=== PATIENT | female | born 1980 | race Caucasian/White ===

== ENCOUNTER 2017-08-08 21:35 | Observation (INO) ==
--- OUTSIDE RECORDS SUMMARY | 2017-08-08 21:50 | External Medical Summary ---
:1980 Author Organization [employer] Care Team Providers Name Role Phone Nitza Reyes Provider Role Unavailable Allergies No Known Allergies Problems Problem Type Condition Code Onset Dates Condition Status Assessment History of gastric bypass Z98.890 Active Problem Depressed mood F32.9 Active Problem Hx of papillary thyroid carcinoma Z85.850 Active Problem Heart failure, unspecified I50.9 Active Assessment Heart failure, unspecified I50.9 Active Assessment Angina at rest I20.8 Active Problem Postsurgical hypothyroidism E89.0 Active Problem Angina at rest I20.8 Active Medications Medication Code Code Instructions Start End Date Status Dosage System Date Potassium NDC 10408-51 99 MG Orally 1 tablet 94-01 Once a day Furosemide NDC 34792-94 20 MG Orally 1 tablet 97-25 Once a day Digoxin NDC 76157-22 0.125 MG Orally 1 tablet 11-01 Once a day Calcium NDC 94279-35 150 MG Orally not 50-40 defined Singulair NDC 37306-88 10 MG Orally 1 tablet 17-01 Once a day in the evening Fluoxetine HCl NDC 36243-40 40 MG Orally 1 capsule 46-56 Once [place] the [place] [address]-78 50 MG Orally 3 tabs Succinate ER 82-01 Once a day Losartan NDC 44720-21 50 MG Orally 1 tablet Potassium 24-22 [place] [address]-91 200 MCG Orally 1 tablet Sodium 58-00 Once a day on an empty stomach in the morning Procedures Procedure Coding System Code Date COMPREHENSIVE METABOLIC PANEL CPT-4 13111 Jun 03, 2016 LIPID PANEL CPT-4 18137 Jun 03, 2016 COMPLETE CBC W/AUTO DIFF WBC CPT-4 25252 Jun 03, 2016 MAGNESIUM CPT-4 07205 Jun 03, 2016 Results No Known Results Summary Purpose [employer]Works Submission
--- OUTSIDE RECORDS SUMMARY | 2017-08-08 21:50 | External Medical Summary ---
:1980 Author Organization [employer] Care Team Providers Name Role Phone Eric Nitza Provider Role Unavailable Allergies, Adverse Reactions, Alerts Substance Reaction Event Type Latex Exam Gloves rash Drug Allergy Adhesive 1"x6yd Info Not Available Drug Allergy Problems Problem Type Condition Code Onset Dates Condition Status Assessment History of gastric bypass Z98.890 Active Assessment Depressed mood F32.9 Active Assessment Abdominal mass of other site R19.09 Active Problem Depressed mood F32.9 Active Problem Hx of papillary thyroid carcinoma Z85.850 Active Problem Heart failure, unspecified I50.9 Active Assessment Hx of papillary thyroid carcinoma Z85.850 Active Assessment Heart failure, unspecified I50.9 Active Problem Postsurgical hypothyroidism E89.0 Active Problem Angina at rest I20.8 Active Assessment Hypokalemia E87.6 Active Assessment Postsurgical hypothyroidism E89.0 Active Assessment Angina at rest I20.8 Active Medications Medication Code Code Instructions Start End Date Status Dosage System Date Losartan NDC 30120-95 50 MG Orally 1 tablet Potassium 24-22 [place] [address]-57 0.125 MG Orally 1 tablet 11-01 [place] [address]-90 200 MCG Orally 1 tablet Sodium 58-00 Once a day on [place] the [place] [address]-99 50 MG Orally 3 tabs Succinate ER 82-01 Once a day Potassium NDC 33407-28 99 MG Orally 1 tablet 94-01 [place] [address]-72 40 MG Orally 1 capsule 46-56 Once a day in the morning Furosemide NDC 53528-82 20 MG Orally 1 tablet 97-25 [place] [address]-49 150 MG Orally not 50-[address] [place] [address]-64 10 MG Orally 1 tablet 17-01 Once a day in the evening Procedures Procedure Coding System Code Date OFFICE VISIT, HEDGE TRIMMER-LOW COMPLEXITY (30 MIN.) CPT-4 04801 Jun 03, 2016 Vital Signs Date/Time: Jun 03, 2016 Temperature 99.4 F Height 61.75 in Weight 154.8 lbs Blood Pressure Diastolic 72 mm Hg Blood Pressure Systolic 110 mm Hg Cardiac Monitoring Heart Rate 80 /min BMI 28.54 Index Oximetry 96 % Results Name Result Date Reference Range Unit Abnormality Flag CT Scan : Abd & Pelvis with IV and oral contrast Summary Purpose eClinicalWorks Submission
[2017-08-08] MEDS ORDERED: SALINE FLUSH 10ml SYRINGE IVF PRN (21:56)
--- NOTE | 2017-08-08 22:09 | Emergency Department Report ---
General Adult HPI - General Stated complaint: numbness in arms/legs Time Seen by Provider: 08/08/17 21:43 Source: patient Mode of arrival: ambulatory Limitations: no limitations - History of Present Illness HPI narrative: Patient presents with strange and somewhat bizarre behavior, mild decreased level of consciousness, and complaints of tingling numbness all over her body. Patient states that last night she had severe chest pain that lasted several hours, but she did not come to the doctor's office. Tonight apparently the symptoms of chest pain had completely gone away, now she presents with vague and variable symptoms of tingling and numbness which are essentially gone at the time of exam. Patient admits routinely using methamphetamines, but states her last use was greater than 5 days ago. Her "friend" who is in the room with her states that he has been with her for the past week, and shows obvious signs of current methamphetamine intoxication. Patient seems to be having some paranoia stating that she thinks that she might of been poisoned, after she talked with police earlier in the day. Patient is not able or willing to tell us why she had the occasion to talk to the police today. - Related Data Home Medications Medication Instructions Recorded Confirmed Cozaar (losartan) 50 mg tablet 25 mg PO DAILY tab 05/11/17 08/08/17 K-Tab (potassium chloride ER) 20 20 meq PO .PRN tab 05/11/17 08/08/17 mEq tablet Lasix (Furosemide) 20 mg tablet 20 mg PO DAILY tab 05/11/17 08/08/17 Prozac (fluoxetine) 20 mg capsule 20 mg PO DAILY cap 05/11/17 08/08/17 Toprol XL metoprolol succinate ER 150 mg PO DAILY tab 05/11/17 08/08/17 200 mg tablet,extended release 24 hr calcium carbonate 500 mg calcium 500 mg PO DAILY tab 05/11/17 08/08/17 (1,250 mg) tablet digoxin 125 mcg tablet 125 mcg PO DAILY tab 05/11/17 08/08/17 levothyroxine 200 mcg tablet 1 tab PO DAILY tab 05/11/17 08/08/17 Allergies Allergy/AdvReac Type Severity Reaction Status Date / Time No Known Allergies Allergy Verified 08/08/17 23:53 Review of Systems All systems: reviewed and negative except as stated PFSH Patient Stated Medical History Hypertension Yes Other Cardiology Yes: cardiomyopathy Depression Yes Substance Use Disorder Yes Now No Clinic Medical History (Last Updated 06/01/17 @ 12:20 by Justin Modi MD) Postsurgical hypothyroidism (Chronic Medical) Papillary thyroid carcinoma (Resolved Medical ~2011) Papillary thyroid carcinoma (Resolved Medical ~2007) Papillary thyroid carcinoma (Inactive Medical ~2000) Drug abuse - methamphetamines Hypokalemia/Hypocalcemia, chronic, noncompliant Hypertension Cardiomyopathy - Social History Smoking status: Current every day smoker Substance use type: methamphetamine Alcohol intake frequency: does not drink Physical Exam - Limitations Limitations: no limitations - General General appearance: alert, other (patient has a dry mouth, lethargic presentation, and looks significantly older than her stated age) - Normal Exams: Head:: Normocephalic without trauma Eyes:: Pupils are PERRLA w/ EOMI, No scleral icterus, irritation, or foreign bodies noted Neck:: Full range of motion, without adenopathy, JVD, bruits or thyromegaly Chest/Respirations:: Clear all soto, with good airflow, and symmetry bilaterally Cardiovascular:: Regular rate and rhythm, without murmur or gallop, Pulses 2+ all extremities, capillary refill, <2 seconds all extremities Abdomen:: Bowel sounds positive, soft, non-tender, non-distended, no hepatosplenomegaly, masses or bruits noted Lymphatic:: No lymphadenopathy, or lymphedema noted Musculoskeletal:: No tenderness, or deformity noted, good range of motion, all extremities Integumentary:: No rashes, hives, or bruising noted, hair and nails, without abnormality Neurological:: Patient is alert, and oriented, cranial nerves, motor/sensory/ cerebellar, exams w/o gross deficits, to observation Psychiatric:: Patient exhibits, appropriate attention, emotion and affect - ENT ENT exam: Present: mucous membranes dry Course Vital Signs Temperature 98.2 F 08/08/17 21:38 Pulse Rate 116 H 08/08/17 21:38 Respiratory Rate 16 08/08/17 21:38 Blood Pressure 132/68 08/08/17 21:38 Pulse Oximetry 99 08/08/17 21:38 Temperature 98.8 F 08/09/17 00:54 Pulse Rate 99 08/09/17 00:54 Respiratory Rate 16 08/09/17 00:54 Blood Pressure 127/61 08/09/17 00:54 Pulse Oximetry 99 08/09/17 00:54 Medical Decision Making - MDM Narrative Medical decision making narrative: On initial examination the patient stated that she was too weak to raise her arms. With assistance she was not only able to raise her arms but keep them raised. On further neurologic testing patient appears to have no significant loss of sensation motor strength or coordination when she gives effort. Patient does appear somewhat lethargic, but her level of consciousness is variable, as she becomes quickly alert when any of her possessions are removed. After the patient had been in the ER for some time after IV fluids are started, patient still is "unable" to give a urine sample. Patient did develop severe muscle cramps and carpal pedal spasms. Patient is given potassium supplement with IV fluids and calcium supplement as ordered. Patient was more forthcoming with the nurse stating that she "usually" takes her medicine routinely, but has not been taking her potassium or her calcium "much." CBC - n CMP - potassium low at 2.6, otherwise normal UDS - Patient given 1 L normal saline with 20 of KCl IV, and 40 KCl orally - Discussed with Dr. Spencer - will admit for electrolyte abnormalities. - Lab Data Result diagrams: 08/08/17 22:37 08/08/17 22:38 Lab Results 08/08/17 08/08/17 08/08/17 Range/Units 22:37 22:37 22:38 WBC 15.7 H (4.5-11.0) T/MM3 RBC 4.44 (4.00-5.20) M/MM3 Hgb 13.1 (12-16) GM/DL Hct 38.8 (36-46) % MCV 87.4 (80-100) UM3 MCH 29.5 (26-34) UUG MCHC 33.8 (31-37) GM/DL RDW Std Deviation 42.6 (36.9-50.2) FL Plt Count 241 (130-400) T/MM3 MPV 10.2 (9.4-12.4) UM3 Immature Gran % (Auto) 0.2 (0.0-0.5) % Neut % (Auto) 83.3 H (33-66) % Lymph % (Auto) 9.2 L (23-45) % Whitley % (Auto) 6.8 (0-9.0) % Eos % (Auto) 0.3 (0-4) % Baso % (Auto) 0.2 (0-2) % Neut # (Auto) 13.0 H (1.8-7.7) T/MM3 Lymph # (Auto) 1.4 (1-4.8) T/MM3 Whitley # (Auto) 1.1 H (0-0.8) T/MM3 Eos # (Auto) 0.0 (0-0.5) T/MM3 Baso # (Auto) 0.0 (0-0.2) T/MM3 Abs Immat Gran (auto) 0.03 (0.00-0.03) T/MM3 Turbidity < 20 (0-20) Sodium 137 (134-144) MEQ/L Potassium 2.6 L* (3.6-5) MEQ/L Chloride 94 L (98-107) MEQ/L Carbon Dioxide 31 H (22-30) MEQ/L Anion Gap 12 (5-15) MEQ/L BUN 8.0 (7-17) MG/DL Creatinine 0.6 L (0.7-1.2) MG/DL GFR Calculation 112 BUN/Creatinine Ratio 13 (6-26) RATIO Glucose 102 (65-110) MG/DL Calculated Osmolality 262 (261-280) MOSM/KG Calcium 7.1 L (8.4-10.2) MG/DL Total Bilirubin 1.30 (0.20-1.30) MG/DL Conjugated Bilirubin 0.00 (0.00-0.30) MG/DL Unconjugated Bilirubin 1.00 (0.00-1.1) MG/DL Icterus Index < 2 (0-7) AST 18 (14-36) U/L ALT 24 (9-52) U/L Alkaline Phosphatase 82 (38-126) U/L Troponin I 0.019 (0-0.12) ng/ml Total Protein 7.6 (6.3-8.2) G/DL Albumin 4.2 (3.5-5.0) G/DL Globulin 3.4 (2.4-3.6) G/DL Albumin/Globulin Ratio 1.2 (1.1-2.2) RATIO Specimen Hemolysis < 15 < 15 (0-25) Disposition Clinical Impression: Hypocalcemia, Hypokalemia Disposition: To [facility] [place] Condition: Improved Prescriptions: No Action calcium carbonate 500 mg calcium (1,250 mg) tablet 500 mg PO DAILY tab Toprol XL metoprolol succinate ER 200 mg tablet,extended release 24 hr 150 mg PO DAILY tab Cozaar (losartan) 50 mg tablet 25 mg PO DAILY tab Lasix (Furosemide) 20 mg tablet 20 mg PO DAILY tab Prozac (fluoxetine) 20 mg capsule 20 mg PO DAILY cap digoxin 125 mcg tablet 125 mcg PO DAILY tab levothyroxine 200 mcg tablet 1 tab PO DAILY tab K-Tab (potassium chloride ER) 20 mEq tablet 20 meq PO .PRN tab - Seen By: physician
[2017-08-08] MEDS ORDERED: METOCLOPRAMIDE 10 MG PO ONE (22:30)
[2017-08-08] MEDS ORDERED: HYDROCODONE/APAP 5/325mg TAB #6 *ED PREPACK SENT HOME ONE (22:30)
[2017-08-08] MEDS ORDERED: NS 1,000 ML IV ONE (22:53)
[2017-08-08] MEDS ORDERED: NS with KCL 20 mEq 1,000 ML IV SCH (23:00)
[2017-08-09] MEDS ORDERED: ORPHENADRINE 60 MG/2 ML INJECTION IV ONE (00:45)
[2017-08-09] MEDS ORDERED: KETOROLAC 30 MG/ML INJECTION IVP ONE (00:45)
[2017-08-09] MEDS ORDERED: CALCIUM GLUCONATE 1,000mg/10ml INJECTION IVP ONE (00:50)
[2017-08-09] MEDS ORDERED: HYDROCODONE/APAP 5mg/325mg TABLET PO PRN (01:50)
[2017-08-09] MEDS ORDERED: ACETAMINOPHEN 325 MG TABLET PO PRN (01:50)
[2017-08-09 02:12] VITALS: BMI 22.6
--- NOTE | 2017-08-09 02:31 | History & Physical Report ---
History of Present Illness Date: 08/09/17 Chief complaint: muscle spasms, peripheral numbness/tingling HPI: Maliha is a 36 y/o female w/ h/o Hypothyroidism, hypokalemia, Cardiomyopathy(on digoxin) and h/o meth use who presents to ED at [facility] [place] w/ chief concern re; muscle spasms in her extremities, peripheral numbness and tingling and shaking and cramping pain at times. Patient states that her fists were clenched today and that she was have similar issues w/ her feet/toes. She states that the symptoms have been occurring intermittently over the past few months, however seemed to be increasing in frequency, severity and duration in recent days. Denies CP today and denies SOA and N/v/D. Patient states she has not been taking her prescription medications including L-thyroxine, calcium and potassium supplements as prescribed by her Manager Of Revenue. She states she last used Meth about 5 days ago - injected into her vein though thinks her " vein blew". She denies any other drug use. In ED, patient's K+ = 2.6 and her Calcium = 7.1. Patient started on IVFs w/ KCL and given oral KDUR x 40mEQ x one and 1 g Calcium gluconate ordered. Patient's EKG showed some early polarization in a few leads, however no specific ST elevations or depressions per report. Her troponin was 0.019. Patient to be admitted to the Hospitalist service for further evaluation and management. Review of Systems All systems PM: 10-point ROS was reviewed, no additional remarkable complaints except Past Medical History Patient Stated Medical History Hypertension Yes Other Cardiology Yes: cardiomyopathy Depression Yes Substance Use Disorder Yes Now No Clinic Medical History (Last Updated 06/01/17 @ 12:20 by Justin Modi MD) Postsurgical hypothyroidism (Chronic Medical) Papillary thyroid carcinoma (Resolved Medical ~2011) Papillary thyroid carcinoma (Resolved Medical ~2007) Papillary thyroid carcinoma (Inactive Medical ~2000) Family History: Mother w/ HTN Family History Updates: Mother w/ HTN - Social History Smoking status: Current every day smoker Substance use type: methamphetamine Medications Home Medications Medication Instructions Recorded Confirmed Type Cozaar (losartan) 50 mg tablet 25 mg PO DAILY tab 05/11/17 08/08/17 History K-Tab (potassium chloride ER) 20 20 meq PO .PRN tab 05/11/17 08/08/17 History mEq tablet Lasix (Furosemide) 20 mg tablet 20 mg PO DAILY tab 05/11/17 08/08/17 History Prozac (fluoxetine) 20 mg capsule 20 mg PO DAILY cap 05/11/17 08/08/17 History Toprol XL metoprolol succinate ER 150 mg PO DAILY tab 05/11/17 08/08/17 History 200 mg tablet,extended release 24 hr calcium carbonate 500 mg calcium 500 mg PO DAILY tab 05/11/17 08/08/17 History (1,250 mg) tablet digoxin 125 mcg tablet 125 mcg PO DAILY tab 05/11/17 08/08/17 History levothyroxine 200 mcg tablet 1 tab PO DAILY tab 05/11/17 08/08/17 History Allergies Allergy/AdvReac Type Severity Reaction Status Date / Time latex AdvReac Rash Verified 08/09/17 02:02 Exam Vital Signs: Temperature 99.4 F 08/09/17 02:19 Pulse Rate 96 08/09/17 02:19 Respiratory Rate 16 08/09/17 02:19 Blood Pressure 124/71 08/09/17 02:19 Pulse Oximetry 96 08/09/17 02:19 Telemetry Rhythm: Sinus Rhythm Height/Weight/BMI: Height 1.55 m Weight 54.3 kg Body Mass Index 22.6 - Constitutional Present: no acute distress, well nourished, well developed - Routine HEENT Exam Head: Present: normocephalic, atraumatic Eye: Present: EOMI, PERRL ENT: Present: mucous membranes dry - Routine Neck Exam Present: supple, full ROM. Absent: JVD, meningismus - Routine Respiratory Exam Present: CTA bilaterally. Absent: accessory muscle use, dyspnea, respiratory distress - Routine Cardiovascular Exam Present: S1, S2, murmur (soft 1/6 systolic murmur), tachycardia (mild) - Routine Abdominal Exam Present: soft, normoactive bowel sounds, non distended, non tender - Routine Extremities Exam Absent: cyanosis, clubbing, edema - Routine Skin Exam Present: dry, warm (nursing) - Routine Neurological Exam Present: alert, oriented X3 Patient was able to close and open fists, FROM of upper extermities; moved lower extremities spontaneously; no contractures; no spasms noted; no facial muscle twitching. - Routine Psychiatric Exam Present: cooperative Comments: alert and awake, however states she was very tired and wanted to go to sleep; Results - Labs CBC & Chem 7: 08/09/17 05:55 08/09/17 05:55 Assessment and Plan Assessment and Plan: Assessment: 1) Acute Symptomatic Hypocalcemia 2) Acute Hypokalemia 3) Hypothyroidism 4) Acute UTI w/ Leukocytosis - UA came back as + nitrates and 20-30 WBCs in the urine 5) Cardiomyopathy 6) HTN 7) Polysubstance abuse / Tobacco use 8) Depression Plan: IVFs NS + 20 mEq of KCL at 100 cc/hour KCL po 20 mEq po BID Tums po TID w/ meals Calcium gluconate 1 gram IV x one Recheck labs at 0600 today including TSH, CBC, Renal Panel, Mg level and Digoxin level Telemetry EKG in the AM (0700) Monitor BP Hold home meds for now - will likely need to restart later this AM SW consult Tox screen pending IV Cipro 400mg IV q 12 hours I have discussed the plan of care w/ the patient and the patient verbalized understanding. Resuscitation Status: Full Code - Physician Narrative Physician: Chu Lopez MD Narrative: Date: 08/09/17 Time: 1700 Have independently interviewed and examined pt. Chart reviewed. Reviewed above note and concur. CC: Muscle spasm, peripheral numbness/tingling HPI: 36 y/o presents to ED secondary to muscle spasm and peripheral numbness/ tingling. Reports intermittent symptoms over past several months, but has been increasing in frequency/severity/duration over the past several days. Reports to ED and [facility] that she has not been using her medications routinely. Report of meth use about 5 days ago. ED evaluation showed significant hypokalemia, hypomagnesemia, and hypocalcemia. Placed in OBS for correction of electrolytes. Discussed case with nursing: has been very somnolent all day - not eaten much, or able to take medications. Met with SW earlier today-not able to stay awake during interview. Even at my evaluation, patient still very somnolent. Could respond with short phrases, but readily would fall back asleep. PMx: HTN, Cardiomyopathy, Depression, Substance abuse, Tobacco dependency, Post Sx hypothyroidism (Hx papillary thyroid cancer). ALL: Latex. Meds: see mar Shx: Recent met use. Not able to obtain detailed history due to patient's somnolence. FHx: Mother had HTN (per chart) ROS: patient notes chills, slight cough. Really not able to obtain more ROS due to patient's somnolency EXAM GEN: WDWNWF somnolent. HEENT: NC/AT PERRLA EOMI MMM Neck: supple Lungs: clear bilaterally. No crackles or wheezes. No distress on RA CV: regular with murmur AB: soft nt/nd BS decreased EXT: trace LE edema bilaterally Skin: warm and dry Neuro: Limited exam secondary to somnolence Psych: somnolent. Will respond to verbal stimuli and answer questions with 1-2 word phases. Not agitated or restless. Apologetic for her somnolence. Assessment Hypokalemia Hypomagnesia Hypocalcemia Leukocytosis UTI Somnolence Cardiomyopathy HTN - BP low post admission Polysubstance use Tobacco dependency Hx depression Sx hypothyroidism Plan Placed in OBS to correct electrolyte disturbance. Repeat lab showing persistently low Mg and potassium - IV boluses given. Recheck BMP and Mg post bolus - replace as indicated. Supportive care for somnolence - possible muscle relaxers given in ED. Hold BP medications as BP has been low post leaving ED. Cipro initiated for UTI, check urine C/S. Check T3/T4 due to low TSH SW did met with patient to discuss concerns. Care to return to PCP at discharge. Hospital Course Summary Disclaimer: The visit summary below is not to be considered part of the above Progress Note.
[2017-08-09] MEDS: NS with KCL 20 mEq 1,000 ML IV SCH ×3 (02:34→21:37)
[2017-08-09] MEDS: CIPROFLOXACIN PB 400 MG/200 ML BAG IV SCH ×2 (05:44→17:45)
[2017-08-09] MEDS: CALCIUM CARBONATE Chewable 500mg TABLET PO SCH ×3 (09:20→20:38)
[2017-08-09] MEDS: MAGNESIUM OXIDE 400 MG TABLET PO SCH ×2 (09:20→20:38)
[2017-08-09] MEDS: MAGNESIUM SULFATE 1gm PREMIX 1 GM/100 ML BAG IV SCH ×2 (10:31→12:08)
[2017-08-09] MEDS: LIDOCAINE 1% 2ml INJ 10 MG, POTASSIUM CHLORIDE INJ 10 MEQ in NS 100 ML IV SCH ×4 (13:24→16:38)
[2017-08-10] MEDS: CIPROFLOXACIN PB 400 MG/200 ML BAG IV SCH (05:25)
[2017-08-10 07:51] VITALS: BP 105/41; RESP 16; TEMP 97.8; O2SAT 99
[2017-08-10 08:01] VITALS: PULSE 91
[2017-08-10] MEDS: MAGNESIUM OXIDE 400 MG TABLET PO SCH (09:23)
[2017-08-10] MEDS: CALCIUM CARBONATE Chewable 500mg TABLET PO SCH ×2 (09:23→15:32)
[2017-08-10] MEDS: NS with KCL 20 mEq 1,000 ML IV SCH (09:24)
--- NOTE | 2017-08-10 14:14 | Progress Note ---
- Date 08/10/17 Subjective: Maliha is seen in follow up for her hypocalcemia, hypokalemia and cardiomyopathy. She is seen while resting in bed with her significant other in bed with her, sleeping. She reports that she is feeling "ok", though she has no specific concerns or complaints. She states that her cramping and muscle spasms are a little better but feels like there is "fluid in her lungs and around her heart". She denies any chest pain, shortness of breath, abdominal pain, nausea, vomiting or diarrhea. Her recent labs were reviewed and results shared with her. UA revealed growth with E. Coli and she continues on cipro. Discussed possibility of discharging today and she stated, "that would be nice. " The importance of outpatient follow up with both Dr. Modi, endocrinology, and her credit controller Dr. Zavala were discussed. Objective Vital signs: Temperature 97.8 F 08/10/17 07:51 Pulse Rate 91 08/10/17 08:00 Respiratory Rate 16 08/10/17 07:51 Blood Pressure 105/41 08/10/17 07:51 Pulse Oximetry 99 08/10/17 07:51 Rhythm: Normal Sinus Rhythm Height/Weight/BMI: Height 5 ft 1 in Weight 119 lb 0.794 oz Body Mass Index 22.6 - Constitutional Present: no acute distress, well nourished, well developed, thin, cooperative Comments: resting in bed with significant other; at times, appears to drift off to sleep during conversation. - Routine HEENT Exam Head: Present: normocephalic, atraumatic Eye: Present: PERRL. Absent: conjunctival icterus ENT: Present: mucous membranes dry - Routine Respiratory Exam Present: CTA bilaterally. Absent: rales, stridor, wheezes, crackles - Routine Cardiovascular Exam Present: RRR, S1, S2 - Routine Abdominal Exam Present: soft, normoactive bowel sounds, non distended, non tender - Routine Extremities Exam Present: edema (trace), non tender, full ROM, pulses intact - Routine Back/Spine/Pelvis Exam Back/Spine: Present: full ROM. Absent: vertebral tenderness - Routine Musculoskeletal Exam Musculoskeletal: Present: no clubbing or cyanosis, moving extremities well - Routine Skin Exam Present: intact, dry, warm. Absent: jaundice Comments: afebrile. - Routine Neurological Exam Present: alert, moving all extremities, hearing grossly intact, normal speech - Routine Lymphatic Exam Lymphatic: Absent: lymphedema - Routine Psychiatric Exam Present: cooperative Comments: drifts off to sleep during exam. Results - Labs CBC & Chem 7: 08/10/17 07:48 08/10/17 07:48 Assessment and Plan Assessment and Plan: Assessment: 1) Acute Symptomatic Hypocalcemia - improving. 2) Acute Hypokalemia - resolved. 3) Hypothyroidism 4) Acute UTI w/ Leukocytosis - E.coli noted on culture. 5) Cardiomyopathy 6) HTN 7) Polysubstance abuse / Tobacco use 8) Depression Plan 08/10/17: Overall, Maliha appears to be clinically improving. Muscle cramping improved. Discussed patient case with Dr. Modi, opthalmic tech, whom she has seen in the past. She missed appointment on 06/02/17. After review of her labs, he recommended Calcitriol 0.25mg daily in addition to calcium carbonate 1500mg daily. Follow up appointment with Dr. Modi scheduled for 08/12/17 at 1:45 in his office. UA revealed E. coli. Will change cipro to oral dosage. Oral intake is good. Will discontinue IVF. Weight stable. Hypokalemia resolved. Will continue KCl 20 mEq po BID. TSH <0.02 with free T3 and T4 pending. Dr. Modi recommended having patient continue her home synthyroid dose and skipping a dose every week until he can follow up with her and taper the dosage. Toxicology screen positive for methamphetamines. Recommend follow up with Dr. Zavala (cardiology) as outpatient as well. DVT Prophylaxis: SCD's Resuscitation Status: Full Code - Time spent with patient Time with patient PN: 35 minutes - Physician Narrative Physician: Chu Lopez MD Narrative: Date: 08/10/17 Time: 1540 Have independently interviewed and examined pt. Chart reviewed. Case discussed with CM and my PA. Care plan developed with my supervision; agree with above. Tired this afternoon-has been sleeping a lot this hospitalization. Notes some increased swelling to hands. Breathing well-not SOA or congested. Lungs: clear bilaterally, no distress CV: regular MSE: awake alert appropriate Plan: Will discharge to home. Calcium and potassium to help maintain electrolytes. May restart prior cardiac medications. Apt set up for Dr Modi evaluation of her thyroid function and low calcium - Free T3 and T4 pending. See orders for details. Hospital Course Summary Disclaimer: The visit summary below is not to be considered part of the above Progress Note. Hospital Course: Assessment: 1) Acute Symptomatic Hypocalcemia 2) Acute Hypokalemia 3) Hypothyroidism 4) Acute UTI w/ Leukocytosis - UA came back as + nitrates and 20-30 WBCs in the urine 5) Cardiomyopathy 6) HTN 7) Polysubstance abuse / Tobacco use 8) Depression Plan 08/09/17: IVFs NS + 20 mEq of KCL at 100 cc/hour KCL po 20 mEq po BID Tums po TID w/ meals Calcium gluconate 1 gram IV x one Recheck labs at 0600 today including TSH, CBC, Renal Panel, Mg level and Digoxin level Telemetry EKG in the AM (0700) Monitor BP Hold home meds for now - will likely need to restart later this AM SW consult Tox screen pending IV Cipro 400mg IV q 12 hours Plan 08/10/17: Overall, Maliha appears to be clinically improving. Muscle cramping improved. Discussed patient case with Dr. Modi, opthalmic tech, whom she has seen in the past. She missed appointment on 06/02/17. After review of her labs, he recommended Calcitriol 0.25mg daily in addition to calcium carbonate 1500mg daily. Follow up appointment with Dr. Modi scheduled for 08/12/17 at 1:45 in his office. UA revealed E. coli. Will change cipro to oral dosage. Oral intake is good. Will discontinue IVF. Weight stable. Hypokalemia resolved. Will continue KCl 20 mEq po BID. TSH <0.02 with free T3 and T4 pending. Dr. Modi recommended having patient continue her home synthyroid dose and skipping a dose every week until he can follow up with her and taper the dosage. Toxicology screen positive for methamphetamines. Recommend follow up with Dr. Zavala (cardiology) as outpatient as well.
[2017-08-10] MEDS ORDERED: CALCITRIOL 0.25 MCG CAPSULE PO ONE (14:18)
--- NOTE | 2017-08-10 15:36 | Discharge Summary ---
Discharge Information Date of admission: 08/09/17 01:38 Anticipated date of discharge: 08/10/17 Attending Physician: Chu Lopez MD Primary care physician: none Consults: Dr. Modi. - Discharge Diagnosis (1) Hypocalcemia Status: Chronic 1) Acute Symptomatic Hypocalcemia - improving. 2) Acute Hypokalemia - resolved. 3) Hypothyroidism 4) Acute UTI w/ Leukocytosis - E.coli noted on culture. 5) Cardiomyopathy 6) HTN 7) Polysubstance abuse / Tobacco use 8) Depression - Procedures Procedures: none - Laboratory Labs: 08/10/17 07:48 08/10/17 07:48 - Microbiology Urine Culture - [facility] [place] Preliminary E. Coli >100,000 cfu/ml History of Present Illness HPI: Maliha is a 36 y/o female w/ h/o Hypothyroidism, hypokalemia, Cardiomyopathy(on digoxin) and h/o meth use who presents to ED at [facility] [place] w/ chief concern re; muscle spasms in her extremities, peripheral numbness and tingling and shaking and cramping pain at times. Patient states that her fists were clenched today and that she was have similar issues w/ her feet/toes. She states that the symptoms have been occurring intermittently over the past few months, however seemed to be increasing in frequency, severity and duration in recent days. Denies CP today and denies SOA and N/v/D. Patient states she has not been taking her prescription medications including L-thyroxine, calcium and potassium supplements as prescribed by her [facility]. She states she last used Meth about 5 days ago - injected into her vein though thinks her " vein blew". She denies any other drug use. In ED, patient's K+ = 2.6 and her Calcium = 7.1. Patient started on IVFs w/ KCL and given oral KDUR x 40mEQ x one and 1 g Calcium gluconate ordered. Patient's EKG showed some early polarization in a few leads, however no specific ST elevations or depressions per report. Her troponin was 0.019. Patient to be admitted to the Hospitalist service for further evaluation and management. Objective Vital signs: Temperature 97.8 F 08/10/17 07:51 Pulse Rate 91 08/10/17 08:00 Respiratory Rate 16 08/10/17 07:51 Blood Pressure 105/41 08/10/17 07:51 Pulse Oximetry 99 08/10/17 07:51 Rhythm: Normal Sinus Rhythm Height/Weight/BMI: Height 5 ft 1 in Weight 119 lb 0.794 oz Body Mass Index 22.6 Hospital Course This is a general summary of the patient's hospital course. For more details refer to the complete medical record. Hospital course: Patient was admitted to observation under the care of Dr. Lopez. Her hypokalemia was treated with NS with KCl at 100ml/hr in addition to KCl 20 mEq po BID with improvement. Cardiac function was monitor closely on telemetry without incident. Given her hypokalemia, she was given calcium carbonate TID with meals as well as 1 gram of calcium gluconate x 1 dose upon admission. UA revealed E. coli which was treated empirically with cipro IV and later changed to oral dosing upon discharge. Blood pressure and vital signs remained stable. TSH was <0.02. During her acute hospitalization, her home medications were held. Social work was consulted and offered additional services to the patient. Patient care was discussed with Dr. Modi, whom the patient has seen in the past. He recommended initiating Calcitriol 0.25mcg daily in addition to calcium carbonate 1500mg daily. An appointment was made for the patient to follow up with Dr. Modi in clinic on 08/12/17 at 1:45. Patients low TSH was discussed with Dr. Modi who recommended having the patient skip one dose per week until he can see her in clinic. Strongly encouraged the patient to follow up with her claims specialist, take her home medications as directed, avoid recreational drug use and to return to the ED if change or worsening or additional concerns. Time spent with patient: discharge greater than 30 minutes DVT Prophylaxis: SCD's Discharge Plan - Discharge Disposition Discharge Date: 08/10/17 Disposition: Discharged Home, Self-Care *Condition: Improved Reason For Visit (Visit label in EMR): Symptomatic hypocalcemia,hypokalemia, meth use - Discharge Medications *Discharge Medications: New Acetaminophen [Tylenol] 650 mg PO Q5H PRN tab PRN Reason: Discomfort Calcitriol [Rocaltrol] 0.25 mcg PO DAILY #30 cap Ciprofloxacin [Cipro] 500 mg PO BID #8 tab Potassium Chloride [K-Dur] 20 meq PO BIDWM #60 tab Continue Toprol XL metoprolol succinate ER 200 mg tablet,extended release 24 hr 150 mg PO DAILY tab Cozaar (losartan) 50 mg tablet 25 mg PO DAILY tab Lasix (Furosemide) 20 mg tablet 20 mg PO DAILY tab Prozac (fluoxetine) 20 mg capsule 20 mg PO DAILY cap digoxin 125 mcg tablet 125 mcg PO DAILY tab levothyroxine 200 mcg tablet 1 tab PO DAILY tab Changed Calcium Carbonate [Calcium] 500 mg PO TID #90 tab Discontinued K-Tab (potassium chloride ER) 20 mEq tablet 20 meq PO .PRN tab - Discharge Packet/Instructions *Diet: Regular, as tolerated. *Activity: as tolerated. *Pain Management/Treatment: Tylenol 650mg every 4-6 hours as needed for pain/ fever. *Wound Care: none Additional Instructions: Rest, increase fluids. Follow up with claims specialist - call in AM to schedule appointment for general check. Return to ED if change or worsening, fever >101, confusion, difficulty breathing or chest pain. Take medications as directed. Follow up with Dr. Modi on 08/12/17 at 1:45. *Expected Signs/Symptoms: general improvement with decrease in fatigue and decrease in muscle spasms. *Notify Physician if: fever >101, chest pain, difficulty breating, questions or concerns. *During Business Hours Contact: Dr. Modi's office or your primary care physician. *After Business Hours Contact: doctor breast surgeon for Dr. Modi or come to the emergency room. *Pending Lab/Results: Follow up w/Provider - Referrals/Follow Up *Referrals/Follow Up: Justin Modi MD [Physician] - 08/12/17 1:45 am - Patient Handouts Patient Handouts: Hypokalemia (DC), Hypocalcemia (DC) Physician Narrative - Narrative Physician: Chu Lopez MD Attestation Narrative: Date: 08/10/17 Time: 2698 I have independently interviewed and examined patient prior to discharge. See my progress note from today for details. Medically stable for discharge to home.
== END 2017-08-10 16:00 | disposition home or self-care (01) ==
LOC: MED 21:35 → ED 21:35 → SUATTDRO 08-09 01:38 → MED 08-09 01:40
PROVIDERS: ADMIT Internal Medicine; ATTEND Hospitalist